=== PATIENT | female | born 1980 | race Caucasian/White ===

== ENCOUNTER 2023-01-24 09:12 | Day surgery (SDC) | payer BC ==
[2023-01-21 12:08] VITALS: BMI 31.9
[2023-01-24 09:38] VITALS: TEMP 97.5
[2023-01-24 10:39] VITALS: RESP 16
[2023-01-24 10:55] VITALS: BP 125/77; PULSE 80
== END 2023-01-24 11:11 | disposition home or self-care (01) ==
LOC: FASU-ENDO 09:12
PROVIDERS: ATTEND Internal Medicine Gastroenterology
PROC: 0DB68ZX Excision of Stomach, Via Natural or Artificial Opening Endoscopic, Diagnostic (ICD-10-PCS; 2023-01-24)
PROC: 0DB48ZX Excision of Esophagogastric Junction, Via Natural or Artificial Opening Endoscopic, Diagnostic (ICD-10-PCS; 2023-01-24)
PROC: 0DB98ZX Excision of Duodenum, Via Natural or Artificial Opening Endoscopic, Diagnostic (ICD-10-PCS; principal; 2023-01-24 10:21)
DX: K29.50 Unspecified chronic gastritis without bleeding (principal); K20.90 Esophagitis, unspecified without bleeding; R10.13 Epigastric pain
CPT/HCPCS: 81025; 88305-TC